=== PATIENT | male | born 1985 | race Caucasian/White ===

== ENCOUNTER 2019-06-07 21:08 | Emergency (ER) | payer SELFPAY ==
[~2019-06-07] VITALS: Ht 172.7 cm; Wt 108.9 kg
[2019-06-07 21:24] VITALS: Ht 172.7 cm; Wt 108.9 kg
[2019-06-08 01:50] VITALS: BP 138/78
== END 2019-06-08 01:50 | disposition home or self-care (01) ==
LOC: ED 21:08
DX: F12.90 Cannabis use, unspecified, uncomplicated (principal); R11.2 Nausea with vomiting, unspecified; R42 Dizziness and giddiness
CPT/HCPCS: Q0162